=== PATIENT | male | born 2000 | race Caucasian/White ===

== ENCOUNTER 2021-09-12 10:06 | Emergency (ER) | payer OTHER ==
[~2021-09-12] VITALS: Ht 177.8 cm; Wt 88.6 kg
[2021-09-12 11:03] VITALS: TEMP 98.5
[2021-09-12] MEDS ORDERED: DOXYCYCLINE 10100 MG PO (11:17)
[2021-09-12] MEDS ORDERED: VALTREX1 GM PO (11:17)
[2021-09-12 11:29] LABS: COLLECTION METHOD CLEAN CATCH
[2021-09-12 11:39] LABS: MUCOUS Present (NOT PRESENT); PH 5 (5-8); SQUAMOUS EPITHELIAL 0-2 /hpf (0-10); URINE APPEARANCE Clear (CLEAR/HAZY); URINE BACTERIA Rare (NONE SEEN); URINE BILIRUBIN Negative (NEGATIVE); URINE BLOOD 1+ (NEGATIVE); URINE COLOR Yellow (YELLOW); URINE GLUCOSE Negative (NEGATIVE); URINE KETONE Negative (NEGATIVE); URINE LEUKOCYTE ESTERASE Negative (NEGATIVE); URINE NITRATE Negative (NEGATIVE); URINE PROTEIN(semi-quant) Negative (NEGATIVE); URINE RBC 0-2 /hpf (0-2); URINE UROBILINOGEN Negative (NEGATIVE)
[2021-09-12 12:09] VITALS: BP 109/68; PULSE 78
[2021-09-12 12:37] LABS: HIV 1/2 Antibodies Non-Reactive; HIV-1p24 Antigen Non-Reactive
== END 2021-09-12 12:10 | disposition home or self-care (01) ==
LOC: COL.ER 10:06 → EDBD 10:08 → COL.ER 10:08
PROVIDERS: Emergency Medicine
DX: S30.822A Blister (nonthermal) of penis, initial encounter (principal); X58.XXXA Exposure to other specified factors, initial encounter
CPT/HCPCS: J0696